=== PATIENT | female | born 2000 | race Caucasian/White ===

== ENCOUNTER 2019-04-09 21:51 | Emergency (ER) | payer MEDICAID ==
--- NOTE | 2019-04-09 22:14 | Emergency Department Record ---
History of Present Illness - General Chief Complaint: Palpitations Stated Complaint: HEART SKIPPING A BEAT/DIZZY/TINGLING IN L ARM Time Seen by Provider: 04/09/19 22:02 Source: Patient Mode of Arrival: Ambulatory Limitations: No limitations - History of Present Illness Initial Comments: The patient is here due to a 2 day hx of irregular heart beating and palpitations. She has been having intermittent sharps R anterior chest pains at times that last seconds. She denies any SOB, GRIS, sweating or nausea but did have 2 seconds of L arm tingling yesterday. The patient denies any recent illnesses or injuries but did wean herself off Zoloft in the last week. She has no hx of any cardiac risk factors and no medical issues. MD Complaint: Irregular heart beat, Palpitations, "Skipped beats" Onset/Timin -: Days(s) Context: Occurred during exertion, Occurred during rest Associated Symptoms: Denies other symptoms - Related Data Home Medications Medication Instructions Recorded Confirmed Last Taken Cholecalciferol (Vitamin D3) 5,000 unit PO DAILY 04/09/19 04/09/19 04/06/19 [Vitamin D3] Sertraline HCl [Zoloft] 100 mg PO DAILY 04/09/19 04/09/19 04/06/19 Allergies Allergy/AdvReac Type Severity Reaction Status Date / Time tdap vaccine Allergy SWELLING Uncoded 04/09/19 22:04 OF THE FACE Travel Screening - Travel/Exposure Within Last 30 Days Have you traveled within the last 30 days?: No - Travel/Exposure Within Last Year Have you traveled outside the [place] in the last year?: No - Additonal Travel Details Have you been exposed to anyone with a communicable illness?: No - Travel Symptoms Symptom Screening: None Review of Systems Constitutional: Denies: Chills, Fever Eyes: Denies: Eye discharge ENT: Denies: Congestion Respiratory: Denies: Cough, Dyspnea Cardiovascular: Reports: Palpitations. Denies: Arrhythmia Endocrine: Denies: Fatigue Gastrointestinal: Denies: Abdominal pain, Nausea Genitourinary: Denies: Dysuria Musculoskeletal: Denies: Arthralgia Skin: Denies: Bruising Past Medical History - SOCIAL HISTORY Smoking Status: Never smoker Alcohol Use: None Drug Use: None - RESPIRATORY Hx Respiratory Disorders: Yes Hx Bronchitis: Yes - CARDIOVASCULAR Hx Cardio Disorders: No - NEURO Hx Neuro Disorders: Yes Hx Dizziness: Yes (2018) - GI Hx GI Disorders: No - Hx Genitourinary Disorders: No - ENDOCRINE Hx Endocrine Disorders: No - PSYCH Hx Psych Problems: Yes Hx Anxiety: Yes Hx Depression: Yes Family Medical History Any Significant Family History?: No Physical Exam - General General Appearance: Alert, Oriented x3, Cooperative, No acute distress - Head Head exam: Atraumatic, Normocephalic, Normal inspection - Eye Eye exam: Normal appearance, PERRL - ENT Throat exam: Normal inspection. negative: Tonsillar erythema, Tonsillar exudate - Neck Neck exam: Normal inspection, Full ROM. negative: Tenderness - Respiratory Respiratory exam: Normal lung sounds bilaterally. negative: Respiratory distress - Cardiovascular Cardiovascular Exam: Regular rate, Normal rhythm, Normal heart sounds. negative: Diastolic murmur, Systolic murmur - GI/Abdominal GI/Abdominal exam: Soft, Normal bowel sounds. negative: Tenderness - Extremities Extremities exam: Normal inspection, Full ROM, Normal capillary refill. negative: Tenderness - Back Back exam: Reports: Normal inspection - Neurological Neurological exam: Alert, Normal gait. negative: Abnormal gait, Altered, Motor sensory deficit - Psychiatric Psychiatric exam: negative: Depressed - Skin Skin exam: negative: Rash Course Vital Signs 04/09/19 22:05 Temperature 98.6 F Pulse Rate [ 70 Left] Respiratory 16 Rate Blood Pressure 129/83 [Left] Pulse Ox 100 - Reevaluation(s) Reevaluation #1: The patient is doing very well at this time. She feels well except for the intermittent skipped beats. I did discuss the normal lab tests and normal EKG with the patient. I did offer to refer her to Cardiology but she would like to see her PCP and discuss options. 04/09/19 22:54 Medical Decision Making - Data Complexity MDM Data: Labs Ordered and/or Reviewed, EKG Ordered and/or Reviewed - Lab Data Result diagrams: 04/09/19 22:15 04/09/19 22:15 - EKG Data -: EKG Interpreted by Me EKG: No Acute Changes, Normal EKG Disposition Disposition: Discharge Clinical Impression: Palpitations Disposition: Home, Self-Care Condition: (2) Stable Instructions: Heart Palpitations (ED) Additional Instructions: Please continue your regular medicines and please see your family doctor for recheck next week. Return to the ER for any worsening symptoms. Forms: Patient Portal Access Time of Disposition: 22:55 Quality - Quality Measures Quality Measures: N/A - Blood Pressure Screening View Details: Yes Does Patient Have Any of the Following: No Blood Pressure Classification: Pre-Hypertensive BP Reading Systolic Measurement: 129 Diastolic Measurement: 83 Screening for High Blood Pressure: < Pre-Hypertensive BP, F/U Documented > [[id number]] Pre-Hypertensive Follow-up Interventions: Referral to alternative/primary care provider.
[2019-04-09 22:21] LABS: ABSOLUTE NEUTROPHIL COUNT 4.29; BASO % 0.2 % (0-6); EOS % 2.7 % (0-6); GRAN % 52.4 % (47-80); HEMATOCRIT 38.7 % (35.0-47.0); HEMOGLOBIN 13.2 gm/dl (11.6-16.0); LYMPH % 37.6 % (16-45); MEAN CELL VOLUME 85.6 fl (81-97); MEAN CORPUSCULAR HEMOGLOBIN 29.2 pg (27-33); MEAN CORPUSCULAR HGB CONC 34.1 g/dl (32-36); MEAN PLATELET VOLUME 9.3 fl (7.4-10.4); MONO % 7.1 % (0-9); PLATELET COUNT 285 K/uL (130-400); RED BLOOD COUNT 4.52 M/uL (3.80-5.40); RED CELL DISTRIBUTION WIDTH 12.7 % (11.5-14.5); WHITE BLOOD COUNT W/O DIFF 8.2 K/uL (4.2-12.2)
[2019-04-09 22:31] LABS: BLOOD UREA NITROGEN 13 mg/dL (6-20); CREATININE 0.8 mg/dL (0.5-0.9)
[2019-04-09 22:32] LABS: TOTAL PROTEIN 7.6 g/dL (6.6-8.7)
[2019-04-09 22:34] LABS: GLUCOSE,RANDOM 93 mg/dL (74-109)
[2019-04-09 22:37] LABS: ALB/GLOB RATIO 1.6 (1.1-1.8); ALBUMIN 4.7 g/dL (4.0-5.0); ALKALINE PHOSPHATASE 72 U/L (35-104); ALT/SGPT 18 U/L (<33); AST/SGOT 16 U/L (10.0-35.0); CREATINE PHOSPHOKINASE 66 U/L (26-192)
[2019-04-09 22:40] LABS: CKMB 1.4 ng/mL (<3.77)
[2019-04-09 22:47] LABS: THYROID STIMULATING HORMONE 2.77 uIU/mL (0.270-4.20)
== END 2019-04-09 23:05 | disposition home or self-care (01) ==
LOC: ER 21:51
DX: R00.2 Palpitations (principal); R20.2 Paresthesia of skin; R42 Dizziness and giddiness; R07.89 Other chest pain
CPT/HCPCS: 80053; 82550; 82553; 84443; 84484; 85025; 93005; 93010; 99284